=== PATIENT | female | born 1970 | race Caucasian/White ===

== ENCOUNTER 2017-09-29 07:23 | Day surgery (SDC) | payer OTHER ==
[2017-10-13] MEDS ORDERED: ULTRACET PO (19:46)
== END 2017-09-29 10:29 | disposition home or self-care (01) ==
LOC: AMB-ENDOS 07:23
DX: K55.1 Chronic vascular disorders of intestine (principal)

== ENCOUNTER 2022-01-12 06:47 | Day surgery (SDC) | payer OTHER ==
[~2022-01-12 06:47] MED LIST: FOLIC ACID1 MG PO; INTEGRA PLUS C1 EACH PO; Intestinex CAP PO; Mylicon 125MG PO; Neurin-Sl Tablet Sl SL; PROTEINEX1 TA1 PO; ULTRACET PO
== END 2022-01-12 13:10 | disposition home or self-care (01) ==
LOC: CIR.AMB 06:47
PROVIDERS: ATTEND Colon & Rectal Surgery
DX: T85.113A Breakdown (mechanical) of implanted electronic neurostimulator, generator, initial encounter (principal); R15.9 Full incontinence of feces; R32 Unspecified urinary incontinence; Z20.822 Contact with and (suspected) exposure to COVID-19; Z88.0 Allergy status to penicillin; J44.9 Chronic obstructive pulmonary disease, unspecified; Z99.81 Dependence on supplemental oxygen
CPT/HCPCS: 64590; 95971; L8679